=== PATIENT | female | born 1955 | race Asian ===

== ENCOUNTER 2019-02-08 08:16 | Day surgery (SDC) | payer OTHER ==
[2019-02-07 12:35] VITALS: BMI 23.6
[2019-02-08 10:16] VITALS: TEMP 97.5
[2019-02-08 11:14] VITALS: BP 141/73; PULSE 55
--- NOTE | 2019-02-12 12:23 | PATH ---
Surgical Pathology Report Patient Name: ELIZABETH ANTOINE [facility]. Rec. #: [id number] /Age/Gender: 1955 (Age: 63) / F Account: [id number] Location: [facility]-ENDOSCOPY Taken: 02/08/2019 Received: 02/08/2019 Reported: 02/12/2019 Physicians: Federica Cantrell M.D. Specimen(s) Received A: 2ND PORTION AND BULB OF DUODENUM B: ANTRUM C: GASTRIC BODY POLYP Clinical History Abdominal pain, weight loss Postoperative diagnosis : duodenal ulcers, gastric body polyp Final Diagnosis A. 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 B. ANTRUM, BIOPSY: MILD CHRONIC GASTRITIS. IMMUNOSTAIN IS NEGATIVE FOR H. PYLORI ORGANISMS. C. GASTRIC BODY POLYPS, BIOPSY: GASTRIC FUNDIC GLAND POLYP. IMMUNOSTAIN IS NEGATIVE FOR H. PYLORI ORGANISMS. Electronically Signed Chantel Vega M.D. Gross Description A. Received in formalin, labeled "second portion and bulb of duodenum" are 5 dumont, irregular portions of soft tissue ranging from 0.2-0.4 cm. in greatest dimension. The specimens are submitted in toto in one cassette. B. Received in formalin, labeled "antrum" are 2 dumont, irregular portions of soft tissue measuring 0.2 and 0.5 cm. in greatest dimension. The specimens are submitted in toto in one cassette. C. Received in formalin, labeled "gastric body polyp" is a dumont, irregular portion of soft tissue measuring 0.3 cm. in greatest dimension. The specimen is submitted in toto in one cassette. MLSZ/02/08/2019 sanml/02/08/2019
== END 2019-02-08 14:40 | disposition home or self-care (01) ==
LOC: JASU-ENDO 08:16
PROVIDERS: ATTEND Internal Medicine Gastroenterology
PROC: 0DB68ZX Excision of Stomach, Via Natural or Artificial Opening Endoscopic, Diagnostic (ICD-10-PCS; 2019-02-08)
PROC: 0DB98ZX Excision of Duodenum, Via Natural or Artificial Opening Endoscopic, Diagnostic (ICD-10-PCS; principal; 2019-02-08 09:00)
DX: K26.9 Duodenal ulcer, unspecified as acute or chronic, without hemorrhage or perforation (principal); K31.7 Polyp of stomach and duodenum
CPT/HCPCS: 88305-TC; 88342-TC